=== PATIENT | male | born 1995 | race African-American/Black ===

== ENCOUNTER 2025-06-02 19:18 | Emergency (ER) | payer BC ==
[2025-06-02] MEDS ORDERED: Ketorolac Tromethamine 30 MG (1 mL) VIAL ONE (19:39)
== END 2025-06-02 19:50 | disposition home or self-care (01) ==
LOC: CSHERS 19:18
DX: S39.012A Strain of muscle, fascia and tendon of lower back, initial encounter (principal); X50.3XXA Overexertion from repetitive movements, initial encounter; Y93.67 Activity, basketball
CPT/HCPCS: 96372; 99283; J1885